=== PATIENT | male | born 1970 | race Caucasian/White ===

== ENCOUNTER 2025-01-10 06:26 | Day surgery (SDC) | payer BC, SELFPAY | END 2025-01-10 11:17 | disposition home or self-care (01) | LOC: GI 06:26 | PROVIDERS: ATTENDING PHYSICIAN Internal Medicine | DX: Z12.11 Encounter for screening for malignant neoplasm of colon (principal); K64.8 Other hemorrhoids; K64.4 Residual hemorrhoidal skin tags | CPT/HCPCS: G0121 ==